=== PATIENT | female | born 1940 | race Caucasian/White ===

== ENCOUNTER 2020-06-16 15:15 | Inpatient (IN) ==
[2020-06-16] MEDS ORDERED: *HR* OxyCODONE/APAP 7.5/325 TABLET PO STA (15:45)
[2020-06-16 17:47] LABS: Basophils # 0.1 K/mcL (0.0-0.2); Basophils % 0.4 %; Eosinophils # 0.1 K/mcL (0.0-0.6); Eosinophils % 0.6 %; Hematocrit 34.8 % (35.3-44.9); Hemoglobin 11.3 g/dL (11.5-15.4); Immature Granulocytes % 0.3 % (0-4); Lymphocytes % 16.9 %; Mean Corpuscular HGB Conc 32.5 g/dL (31.6-35.5); Mean Corpuscular Hemoglobin 28.8 pg (28.0-33.3); Mean Corpuscular Volume 88.5 fL (83.0-100.0); Mean Platelet Volume 9.6 fL (9.4-12.4); Monocytes # 0.8 K/mcL (0.0-1.3); Monocytes % 6.9 %; Neutrophils # 8.7 K/mcL (1.6-8.9); Platelet Count 240 K/mcL (140-400); Red Blood Count 3.93 M/mcL (3.82-4.97); Red Cell Distribution Width 12.9 % (11.5-14.5); Segmented Neutrophils % 74.9 %; White Blood Count 11.6 K/mcL (4.3-11.1)
[2020-06-16] MEDS ORDERED: Naloxone 0.4 MG/ML INJ IVP PRN (17:47)
[2020-06-16] MEDS ORDERED: Ondansetron 4 MG/2 ML VIAL IVP PRN (17:47)
[2020-06-16 18:06] LABS: Alanine Aminotransferase 17 Units/L (7-52); Albumin 4.2 g/dL (3.5-5.7); Albumin/Globulin Ratio 1.7 (1.1-2.2); Alkaline Phosphatase 57 Units/L (34-104); Aspartate Amino Transferase 22 Units/L (13-39); BUN/Creatinine Ratio 28 (6-26); Bilirubin,Total 1.2 mg/dL (0.3-1.0); Blood Urea Nitrogen 27 mg/dL (8-23); Calcium 9.8 mg/dL (8.6-10.3); Carbon Dioxide 23 mEq/L (23-29); Chloride 111 mEq/L (98-107); Globulin 2.5 g/dL (2.4-3.5); Glucose 75 mg/dL (70-105); Magnesium 1.5 mg/dL (1.6-2.6); Osmolality,Calculated 298 (280-300); Phosphorous 2.3 mg/dL (2.7-4.5); Potassium 4.1 mEq/L (3.5-5.1); Sodium 142 mEq/L (136-145); Total Protein 6.7 g/dL (6.4-8.9); eGFR For African Americans > 60 (> 60); eGFR For Non-African Americans 56 (> 60)
[2020-06-16 18:09] LABS: INR 1.1; Prothrombin Time 12.4 Seconds (9.4-12.1)
[2020-06-16] MEDS ORDERED: *HR* OxyCODONE Immed Rel 5 MG TABLET PO PRN (18:11)
[2020-06-16 18:31] LABS: Bilirubin,Urine Negative (Negative); Blood,Urine Negative (Negative); Clarity,Urine Clear (Clear); Color,Urine Colorless (Yellow); Glucose,Urine (UA) Normal (Normal); Ketones,Urine Negative (Negative); Leukocyte Esterase,Urine Negative (Negative); Nitrite,Urine Negative (Negative); Protein,Urine Negative (Neg-Trace); Urobilinogen,Urine Normal (Normal)
[2020-06-16] MEDS ORDERED: Potassium Phosphate 44 MEQ in 0.9 % Sodium Chloride 250 ML IVPB ONE (19:22)
[2020-06-16] MEDS ORDERED: Dextrose Gel 15 GM/37.5 ML TUBE PO PRN ×2 (19:25)
[2020-06-16] MEDS ORDERED: D5% in Water 1,000 ML IVC PRN (19:25)
[2020-06-16] MEDS ORDERED: *HR* Dextrose 50 % in Water (Vial) 50 ML VIAL IVP PRN (19:25)
[2020-06-16] MEDS ORDERED: Lidocaine 4% CREAM (LMX) 5 GM TP ONE (21:54)
[2020-06-16] MEDS: Insulin LISPRO 300 UNITS/3 ML VIAL SQ SCH (22:21)
[2020-06-16] MEDS: *HR* OxyCODONE Immed Rel 5 MG TABLET PO PRN (22:40)
[2020-06-17] MEDS: *HR* OxyCODONE Immed Rel 5 MG TABLET PO PRN ×5 (05:05→22:33)
[2020-06-17 06:45] LABS: Basophils % 0.4 %; Eosinophils # 0.1 K/mcL (0.0-0.6); Eosinophils % 0.8 %; Hematocrit 34.3 % (35.3-44.9); Hemoglobin 10.8 g/dL (11.5-15.4); Immature Granulocytes % 0.4 % (0-4); Lymphocytes # 1.7 K/mcL (0.6-4.6); Lymphocytes % 23.1 %; Mean Corpuscular HGB Conc 31.5 g/dL (31.6-35.5); Mean Corpuscular Hemoglobin 28.4 pg (28.0-33.3); Mean Corpuscular Volume 90.3 fL (83.0-100.0); Mean Platelet Volume 9.9 fL (9.4-12.4); Monocytes # 0.7 K/mcL (0.0-1.3); Monocytes % 9.7 %; Neutrophils # 4.8 K/mcL (1.6-8.9); Platelet Count 217 K/mcL (140-400); Red Cell Distribution Width 13.1 % (11.5-14.5); Segmented Neutrophils % 65.6 %; White Blood Count 7.3 K/mcL (4.3-11.1)
[2020-06-17 07:03] LABS: BUN/Creatinine Ratio 27 (6-26); Blood Urea Nitrogen 24 mg/dL (8-23); Calcium 9.1 mg/dL (8.6-10.3); Carbon Dioxide 26 mEq/L (23-29); Chloride 108 mEq/L (98-107); Glucose 133 mg/dL (70-105); Osmolality,Calculated 296 (280-300); Potassium 4.5 mEq/L (3.5-5.1); Sodium 140 mEq/L (136-145); eGFR For African Americans > 60 (> 60); eGFR For Non-African Americans > 60 (> 60)
[2020-06-17] MEDS: Insulin LISPRO 300 UNITS/3 ML VIAL SQ SCH ×4 (09:03→20:17)
[2020-06-17 09:34] LABS: Magnesium 1.7 mg/dL (1.6-2.6); Phosphorous 5.1 mg/dL (2.7-4.5)
[2020-06-17] MEDS: Pregabalin 50 MG CAPSULE PO SCH ×2 (12:45→19:35)
[2020-06-17] MEDS ORDERED: tiZANidine 4 MG TABLET PO PRN (21:00)
[2020-06-18] MEDS: *HR* OxyCODONE Immed Rel 5 MG TABLET PO PRN ×2 (02:13→07:18)
[2020-06-18 04:55] LABS: Basophils % 0.4 %; Hematocrit 33.7 % (35.3-44.9); Hemoglobin 10.6 g/dL (11.5-15.4); Immature Granulocytes % 0.3 % (0-4); Lymphocytes % 20.9 %; Mean Corpuscular HGB Conc 31.5 g/dL (31.6-35.5); Mean Corpuscular Hemoglobin 28.4 pg (28.0-33.3); Mean Corpuscular Volume 90.3 fL (83.0-100.0); Mean Platelet Volume 9.9 fL (9.4-12.4); Monocytes # 0.9 K/mcL (0.0-1.3); Monocytes % 9.7 %; Neutrophils # 6.6 K/mcL (1.6-8.9); Platelet Count 193 K/mcL (140-400); Red Blood Count 3.73 M/mcL (3.82-4.97); Segmented Neutrophils % 68.7 %; White Blood Count 9.6 K/mcL (4.3-11.1)
[2020-06-18 05:13] LABS: BUN/Creatinine Ratio 23 (6-26); Blood Urea Nitrogen 20 mg/dL (8-23); Calcium 8.9 mg/dL (8.6-10.3); Carbon Dioxide 25 mEq/L (23-29); Chloride 104 mEq/L (98-107); Glucose 204 mg/dL (70-105); Osmolality,Calculated 292 (280-300); Potassium 3.9 mEq/L (3.5-5.1); Sodium 137 mEq/L (136-145); eGFR For African Americans > 60 (> 60); eGFR For Non-African Americans > 60 (> 60)
[2020-06-18] MEDS: Pregabalin 50 MG CAPSULE PO SCH ×2 (07:17→19:54)
[2020-06-18] MEDS: Insulin LISPRO 300 UNITS/3 ML VIAL SQ SCH ×4 (07:18→20:29)
[2020-06-18] MEDS ORDERED: amLODIPine 5 MG TABLET PO SCH (09:00)
[2020-06-18] MEDS ORDERED: Clindamycin 900 MG/50 ML 900 MG/50 ML IV.SOLN IVPB ONE ×2 (10:20→11:16)
[2020-06-18] MEDS ORDERED: *HR* FentaNYL (PF) 100 MCG/2 ML VIAL ONE (10:27)
[2020-06-18] MEDS ORDERED: *HR* Propofol 200 MG/20 ML VIAL IVP ONE (10:27)
[2020-06-18] MEDS ORDERED: Ondansetron 4 MG/2 ML VIAL ONE (10:27)
[2020-06-18] MEDS ORDERED: Lidocaine -MPF 4% 5 ML AMPUL ONE ×2 (10:27→11:03)
[2020-06-18] MEDS ORDERED: Lidocaine -MPF 2% 2 ML VIAL ONE (10:27)
[2020-06-18] MEDS ORDERED: Famotidine 20 MG/2 ML VIAL IVP ONE (10:42)
[2020-06-18] MEDS ORDERED: *HR* Labetalol 20 MG/4 ML SYRINGE IVP PRN (10:42)
[2020-06-18] MEDS ORDERED: Morphine Sulfate 2 MG/ML SYRINGE IVP PRN (10:42)
[2020-06-18] MEDS ORDERED: *HR* OxyCODONE Immed Rel 5 MG TABLET PO PRN ×3 (10:42→13:27)
[2020-06-18] MEDS ORDERED: Acetaminophen IV 1,000 MG/100 ML INFUS..BTL IVPB ONE (10:42)
[2020-06-18] MEDS ORDERED: Ondansetron 4 MG/2 ML VIAL IVP ONE ×2 (10:42→13:37)
[2020-06-18] MEDS ORDERED: *HR* Succinylcholine 200 MG/10 ML VIAL IVP ONE (11:02)
[2020-06-18] MEDS ORDERED: Dexamethasone 4 MG/ML VIAL ONE (11:34)
[2020-06-18] MEDS ORDERED: *HR* PHENYLEPHRINE 1,000 MCG/10 ML SYRINGE IVP ONE (11:54)
[2020-06-18 13:09] LABS: Hematocrit 34.8 % (35.3-44.9); Hemoglobin 11.1 g/dL (11.5-15.4)
[2020-06-18] MEDS ORDERED: Dextrose Gel 15 GM/37.5 ML TUBE PO PRN ×2 (13:27)
[2020-06-18] MEDS ORDERED: tiZANidine 4 MG TABLET PO PRN (13:27)
[2020-06-18] MEDS ORDERED: *HR* Dextrose 50 % in Water (Vial) 50 ML VIAL IVP PRN (13:27)
[2020-06-18] MEDS ORDERED: D5% in Water 1,000 ML IVC PRN (13:27)
[2020-06-18] MEDS ORDERED: *HR* HYDROmorphone PF 0.5 MG/0.5 ML SYRINGE IVP PRN (13:37)
[2020-06-18] MEDS: Clindamycin 900 MG/50 ML 900 MG/50 ML IV.SOLN IVPB SCH ×2 (16:56→23:18)
[2020-06-19 07:34] VITALS: BP 118/66
[2020-06-19] MEDS: Pregabalin 50 MG CAPSULE PO SCH (08:35)
[2020-06-19] MEDS: Insulin LISPRO 300 UNITS/3 ML VIAL SQ SCH ×2 (08:36→12:04)
[2020-06-19 08:59] LABS: Basophils % 0.1 %; Hematocrit 28.3 % (35.3-44.9); Immature Granulocytes % 0.4 % (0-4); Lymphocytes # 1.1 K/mcL (0.6-4.6); Lymphocytes % 9.5 %; Mean Corpuscular HGB Conc 32.5 g/dL (31.6-35.5); Mean Corpuscular Hemoglobin 29.1 pg (28.0-33.3); Mean Corpuscular Volume 89.6 fL (83.0-100.0); Mean Platelet Volume 10.4 fL (9.4-12.4); Monocytes # 0.9 K/mcL (0.0-1.3); Monocytes % 7.6 %; Neutrophils # 9.3 K/mcL (1.6-8.9); Platelet Count 160 K/mcL (140-400); Red Blood Count 3.16 M/mcL (3.82-4.97); Red Cell Distribution Width 12.8 % (11.5-14.5); Segmented Neutrophils % 82.4 %; White Blood Count 11.3 K/mcL (4.3-11.1)
[2020-06-19] MEDS ORDERED: amLODIPine 5 MG TABLET PO SCH (09:00)
[2020-06-19 09:03] LABS: BUN/Creatinine Ratio 31 (6-26); Blood Urea Nitrogen 32 mg/dL (8-23); Calcium 9.4 mg/dL (8.6-10.3); Carbon Dioxide 26 mEq/L (23-29); Chloride 100 mEq/L (98-107); Glucose 242 mg/dL (70-105); Osmolality,Calculated 289 (280-300); Potassium 4.4 mEq/L (3.5-5.1); Sodium 132 mEq/L (136-145); eGFR For African Americans > 60 (> 60); eGFR For Non-African Americans 52 (> 60)
[2020-06-19 09:05] LABS: Hemoglobin 9.2 g/dL (11.5-15.4)
[2020-06-19] MEDS ORDERED: *HR* Heparin 5,000 UNIT/ML VIAL SQ SCH (10:42)
== END 2020-06-19 12:35 | disposition home health service (06) | DRG 482 ==
LOC: 3NENU 15:15 → EMEROOARM 15:15 → SUATTDRO 18:16 → 3NENU 18:37
PROVIDERS: ADMIT Student in an Organized Health Care Education/Training Program; ATTEND Family Medicine

== ENCOUNTER 2022-08-15 11:31 | Observation (INO) ==
[2022-08-15 14:35] LABS: Hemoglobin 10.6 g/dL (11.5-15.4); Mean Corpuscular HGB Conc 31.2 g/dL (31.6-35.5); Mean Corpuscular Volume 86.7 fL (83.0-100.0); Mean Platelet Volume 10.2 fL (9.4-12.4); Platelet Count 222 K/mcL (140-400); Red Blood Count 3.92 M/mcL (3.82-4.97); Red Cell Distribution Width 14.8 % (11.5-14.5); Segmented Neutrophils % 75.3 %; White Blood Count 8.2 K/mcL (4.3-11.1)
[2022-08-15 14:36] LABS: Basophils % 0.2 %; Eosinophils # 0.1 K/mcL (0.0-0.6); Eosinophils % 1.3 %; Immature Granulocytes % 0.2 % (0-4); Lymphocytes # 1.3 K/mcL (0.6-4.6); Lymphocytes % 15.5 %; Monocytes # 0.6 K/mcL (0.0-1.3); Monocytes % 7.5 %; Neutrophils # 6.2 K/mcL (1.6-8.9)
[2022-08-15 14:48] LABS: INR 1.1; Prothrombin Time 12.3 Seconds (9.4-12.1)
[2022-08-15 14:50] LABS: Activated Partial Thrombo Time 28.8 Seconds (26.0-36.0)
[2022-08-15 14:56] LABS: Alanine Aminotransferase 39 Units/L (7-52); Albumin 3.9 g/dL (3.5-5.7); Albumin/Globulin Ratio 1.5 (1.1-2.2); Alkaline Phosphatase 82 Units/L (34-104); Aspartate Amino Transferase 63 Units/L (13-39); BUN/Creatinine Ratio 26 (6-26); Bilirubin,Direct 0.1 mg/dL (0.0-0.2); Bilirubin,Indirect 0.4 mg/dL (0.0-1.0); Bilirubin,Total 0.5 mg/dL (0.3-1.0); Blood Urea Nitrogen 25 mg/dL (8-23); Calcium 8.9 mg/dL (8.6-10.3); Carbon Dioxide 24 mEq/L (23-29); Chloride 110 mEq/L (98-107); Globulin 2.6 g/dL (2.4-3.5); Glucose 254 mg/dL (70-105); Osmolality,Calculated 303 (280-300); Potassium 4.7 mEq/L (3.5-5.1); Sodium 140 mEq/L (136-145); Total Protein 6.5 g/dL (6.4-8.9); Troponin I < 0.03 ng/mL (< 0.04)
[2022-08-15 15:17] LABS: Influenza A PCR Negative (Negative); Influenza B PCR Negative (Negative); Resp. Syncytial Virus PCR Negative (Negative); SARS-CoV-2 by PCR (In House) Negative (Negative)
[2022-08-15] MEDS ORDERED: Iopamidol - 370 500 ML MLS IVP ONE (15:26)
[2022-08-15] MEDS ORDERED: Furosemide 40 MG/4 ML VIAL IVP ONE (17:27)
[2022-08-15] MEDS ORDERED: Ondansetron 4 MG/2 ML VIAL IVP PRN (17:52)
[2022-08-15] MEDS ORDERED: Naloxone 0.4 MG/ML INJ IVP PRN (17:52)
[2022-08-15] MEDS ORDERED: *HR* Dextrose 50 % in Water (Syg) 50 ML SYRINGE IVP PRN (17:55)
[2022-08-15] MEDS ORDERED: D5% in Water 1,000 ML IVC PRN (17:55)
[2022-08-15] MEDS ORDERED: Dextrose Gel 15 GM/37.5 ML TUBE PO PRN ×2 (17:55)
[2022-08-15] MEDS ORDERED: *HR* HYDROcodone/Acet 5/325 mg TABLET PO PRN (18:23)
[2022-08-15] MEDS: Insulin DETEMIR 100 UNIT/ML X5UNITS SUBQ SCH (20:29)
[2022-08-15] MEDS: Insulin LISPRO 300 UNITS/3 ML VIAL SUBQ SCH (20:53)
[2022-08-15] MEDS: *HR* Heparin 5,000 UNIT/ML VIAL SQ SCH (23:08)
[2022-08-15] MEDS ORDERED: tiZANidine 4 MG TABLET PO PRN (23:14)
[2022-08-16 02:52] LABS: Basophils % 0.4 %; Eosinophils # 0.1 K/mcL (0.0-0.6); Eosinophils % 0.9 %; Hematocrit 34.6 % (35.3-44.9); Hemoglobin 11.2 g/dL (11.5-15.4); Immature Granulocytes % 0.3 % (0-4); Lymphocytes # 1.7 K/mcL (0.6-4.6); Lymphocytes % 22.4 %; Mean Corpuscular HGB Conc 32.4 g/dL (31.6-35.5); Mean Corpuscular Hemoglobin 26.8 pg (28.0-33.3); Mean Corpuscular Volume 82.8 fL (83.0-100.0); Mean Platelet Volume 10.7 fL (9.4-12.4); Monocytes # 0.5 K/mcL (0.0-1.3); Neutrophils # 5.3 K/mcL (1.6-8.9); Platelet Count 252 K/mcL (140-400); Red Blood Count 4.18 M/mcL (3.82-4.97); Red Cell Distribution Width 14.8 % (11.5-14.5); White Blood Count 7.7 K/mcL (4.3-11.1)
[2022-08-16 03:02] LABS: Calcium 9.8 mg/dL (8.6-10.3); Magnesium 1.4 mg/dL (1.6-2.6)
[2022-08-16] MEDS: *HR* Heparin 5,000 UNIT/ML VIAL SQ SCH ×3 (05:25→21:18)
[2022-08-16] MEDS ORDERED: Magnesium Oxide 400 MG TABLET PO ONE (08:01)
[2022-08-16] MEDS: amLODIPine 5 MG TABLET PO SCH (08:22)
[2022-08-16] MEDS: Insulin LISPRO 300 UNITS/3 ML VIAL SUBQ SCH ×3 (08:23→18:46)
[2022-08-16] MEDS: Furosemide 40 MG/4 ML VIAL IVP SCH (08:23)
[2022-08-16] MEDS: rOPINIRole 1 MG TABLET PO SCH (15:45)
[2022-08-16] MEDS ORDERED: rOPINIRole 1 MG TABLET PO SCH (21:00)
[2022-08-16] MEDS: Pregabalin 50 MG CAPSULE PO SCH (21:18)
[2022-08-16] MEDS: Insulin DETEMIR 100 UNIT/ML X5UNITS SUBQ SCH (21:20)
[2022-08-17] MEDS: Insulin LISPRO 300 UNITS/3 ML VIAL SUBQ SCH ×3 (01:44→12:20)
[2022-08-17 02:53] LABS: Calcium 9.5 mg/dL (8.6-10.3); Magnesium 1.4 mg/dL (1.6-2.6); Potassium 3.7 mEq/L (3.5-5.1)
[2022-08-17] MEDS: *HR* Heparin 5,000 UNIT/ML VIAL SQ SCH ×2 (05:31→15:45)
[2022-08-17] MEDS: amLODIPine 5 MG TABLET PO SCH (08:18)
[2022-08-17] MEDS: Pregabalin 50 MG CAPSULE PO SCH (08:18)
[2022-08-17] MEDS: rOPINIRole 1 MG TABLET PO SCH ×2 (08:20→15:48)
[2022-08-17] MEDS: Furosemide 40 MG/4 ML VIAL IVP SCH (08:21)
[2022-08-17 11:43] VITALS: BP 135/73; PULSE 74; TEMP 98.4; O2SAT 90
== END 2022-08-17 17:10 | disposition home or self-care (01) ==
LOC: 2ANU 11:31 → EMEROOARM 11:31 → SUATTDRO 18:45 → 2ANU 19:34
PROVIDERS: ADMIT Hospitalist; ATTEND Student in an Organized Health Care Education/Training Program